=== PATIENT | male | born 1980 | race Caucasian/White ===

== ENCOUNTER 2019-12-01 19:02 | Emergency (ER) | payer MEDICAID ==
[~2019-12-01] VITALS: Ht 172.7 cm; Wt 88.0 kg
[~2019-12-01 19:02] MED LIST: AMITRIPTYLINE; PHEN100C4
[2019-12-01] MEDS ORDERED: HYDROCODONE/ACETAMINOPHEN 5/325MG TABLET PO ONE (20:30)
[2019-12-01] MEDS ORDERED: IBUPROFEN 800MG TABLET PO ONE (20:30)
[2019-12-01 20:59] VITALS: BP 133/78
== END 2019-12-02 00:05 | disposition home or self-care (01) ==
LOC: ER 19:02
DX: M25.511 Pain in right shoulder (principal); V43.52XA Car driver injured in collision with other type car in traffic accident, initial encounter; Y93.89 Activity, other specified; Y92.410 Unspecified street and highway as the place of occurrence of the external cause
CPT/HCPCS: 73030; 99283